=== PATIENT | male | born 1990 | race Caucasian/White ===

== ENCOUNTER 2017-01-10 18:09 | Emergency (ER) | payer BC ==
[2017-01-10 18:15] VITALS: O2SAT 98
--- NOTE | 2017-01-10 18:29 | ERPHSYRPT ---
- History of Present Illness Time Seen by Provider: 01/10/17 18:16 Source: patient Exam Limitations: no limitations Patient Subjective Stated Complaint: sore throat Triage Nursing Assessment: sore throat since 1400. throat red. watery, itchy eyes. generalized achiness. eyes draining yellow and matted. Physician History: 26-year-old white male arrives with complaint of a sore throat fever, aches, drainage from bilateral eyes red eyes. Symptoms since today. Patient states he cut onions yesterday. Patient has not had vomiting diarrhea. Past medical history patient denies. Past surgical history is negative. Social history occasional alcohol use. Occasional tobacco use. Timing/Duration: today Severity: moderate Modifying Factors: Improves With: nothing Associated Symptoms: fever, malaise, other (generalized aches. Drainage from both eyes), No nausea, No vomiting, No abdominal pain, No shortness of breath, No heartburn, No diaphoresis, No cough, No chills, No chest pain, No headaches, No loss of appetite, No rash, No syncope, No seizure, No weakness Allergies/Adverse Reactions: No Known Drug Allergies Allergy (Unverified 01/10/17 18:15) Home Medications: No Home Meds 1 [facility] UD 01/10/17 [History] Hx Tetanus, Diphtheria Vaccination/Date Given: Yes Hx Influenza Vaccination/Date Given: No Hx Pneumococcal Vaccination/Date Given: No Immunizations Up to Date: Yes - Review of Systems Constitutional: Fever Eyes: Discharge, Eye Pain, Eye Redness, Other Ears, Nose, & Throat: Throat Pain, No Ear Pain, No Ear Discharge, No Hearing Changes, No Tinnitus, No Nose Pain, No Nose Congestion, No Nose Discharge, No Sinus Drainage, No Epistaxis, No Mouth Pain, No Mouth Swelling, No Loose Teeth, No Throat Swelling, No Hoarse, No Painful Swallowing, No Snoring, No Stridor Respiratory: No Cough, No Dyspnea Cardiac: No Chest Pain, No Edema, No Syncope Abdominal/Gastrointestinal: No Abdominal Pain, No Nausea, No Vomiting, No Diarrhea Genitourinary Symptoms: No Dysuria Musculoskeletal: Myalgias, No Back Pain, No Neck Pain Skin: No Symptoms Neurological: No Dizziness, No Focal Weakness, No Sensory Changes Psychological: No Symptoms Endocrine: No Symptoms All Other Systems: Reviewed and Negative - Past Medical History Pertinent Past Medical History: Yes - Past Surgical History Past Surgical History: No - Social History Smoking Status: Current every day smoker Exposure to second hand smoke: No Drug Use: none Patient Lives Alone: No - Nursing Vital Signs Nursing Vital Signs: Initial Vital Signs Temperature 100.5 F 01/10/17 18:11 Pulse Rate 86 01/10/17 18:11 Respiratory Rate 18 01/10/17 18:11 Blood Pressure 146/78 01/10/17 18:11 O2 Sat by Pulse Oximetry 98 01/10/17 18:11 Pain Scale Pain Intensity 0 - Physical Exam General Appearance: mild distress Eye Exam: other (eyes PERRLA EOMI fundi are unremarkable sclera mildly injected conjunctiva erythematous with yellow drainage bilaterally) Ears, Nose, Throat Exam: TMs normal, pharyngeal erythema, No dry mucous membranes, No TM abnormal (R), No TM abnormal (L) Neck Exam: normal inspection, non-tender, supple, full range of motion Respiratory Exam: normal breath sounds, lungs clear, No respiratory distress Cardiovascular Exam: regular rate/rhythm, normal heart sounds, normal peripheral pulses Gastrointestinal/Abdomen Exam: soft, normal bowel sounds, No tenderness, No mass Back Exam: normal inspection, normal range of motion, No CVA tenderness, No vertebral tenderness Extremity Exam: normal inspection, normal range of motion, pelvis stable Neurologic Exam: alert, oriented x 3, cooperative, normal mood/affect, nml cerebellar function, nml station & gait, sensation nml, No motor deficits Skin Exam: normal color, warm, dry, No rash Lymphatic Exam: No adenopathy SpO2 Interpretation: normal (98%) SpO2: 98 Oxygen Delivery: Room Air - Course Nursing assessment & vital signs reviewed: Yes Ordered Tests: Active Orders 24 hr Category Date Time Status Visual Acuity STAT Care 01/10/17 18:22 Active - Progress Progress: improved Progress Note: 01/10/17 18:26 26-year-old white male arrives with complaint of generalized aches sore throat and fever patient with bilateral conjunctivitis symptoms since today. Will go ahead and place patient on amoxicillin 500 mg orally 3 times a day. Also will place patient on Ciloxan drops for his eyes. - Departure Time of Disposition: 18:34 Departure Disposition: Home Clinical Impression: Bilateral conjunctivitis Qualifiers: Conjunctivitis type: unspecified Qualified Code(s): H10.9 - Unspecified conjunctivitis Pharyngitis Qualifiers: Pharyngitis/tonsillitis etiology: unspecified etiology Qualified Code(s): J02.9 - Acute pharyngitis, unspecified Condition: Fair Critical Care Time: No Referrals: TORO PATTON [Primary Care Provider] - Additional Instructions: Return home. Ciloxan drops 0.3% one drop in each eye 4 times a day for 5 days. Amoxicillin 500 mg orally 3 times a day for 10 days. Plenty of fluids. Tylenol every 4 hours or Motrin every 6 hours as needed for pain or temperature greater than 100.5. Follow-up with your family Dr. symptoms are worse, no better in hours, or persist longer than one week. Return for acute distress or for severe symptoms. Prescriptions: Amoxicillin 500 mg PO TID #30 capsule
[2017-01-10 18:50] VITALS: BP 142/86; PULSE 88
== END 2017-01-10 18:49 | disposition home or self-care (01) ==
LOC: ED 18:09
DX: H10.9 Unspecified conjunctivitis (principal)
CPT/HCPCS: 99282; 99283